=== PATIENT | female | born 1990 | race Caucasian/White ===

== ENCOUNTER 2018-07-13 17:24 | Inpatient (IN) | payer OTHER ==
[~2018-07-13] VITALS: Ht 172.7 cm; Wt 85.7 kg
--- NOTE | 2018-07-13 21:38 | NUR ---
SURVEILLANCE SUPERVISOR NOTES RECEIVED PATIENT IN [facility] FROM [facility]. PATIENT IS ALERT AND ORIENTED X4, VERBALLY RESPONSIVE, ABLE TO MAKE NEEDS KNOWN. BREATHING EVEN AND UNLABORED. NO SOB NOTED. TOLERATING ROOM AIR. NO COMPLAINTS OF PAIN OR DISCOMFORT. IV ON LEFT AC G#20 INTACT AND PATENT. SKIN DRY AND WARM TO TOUCH. AFEBRILE. EXPLAINED THE PROCESS OF ADMISSION, INCLUDING SKIN ASSESSMENT. ORIENTED TO THE USE OF UNIT AMENITIES. BELONGINGS ACCOUNTED FOR. SAFETY MEASURES IN PLACE. CALL LIGHT WITHIN REACH. WILL CONTINUE TO MONITOR.
[2018-07-13 21:45] VITALS: BP 102/66
--- NOTE | 2018-07-13 22:00 | NUR ---
RN MS NOTES INFORMED PATIENT REGARDING SKIN ASSESSMENT. ONLY ABLE TO ASSESS ARMS, CHEST, ABDOMEN AND BACK AND FOUND NO ISSUES. PATIENT HAS LIMITED MOVEMENTS DUE TO DIZZINESS. PATIENT REFUSED TO TAKE OFF PANTS REGARDLESS OF GOWN ON. PATIENT ASSURED THAT SHE HAS NO WOUNDS OR ANY SKIN ISSUES TO BE CONCERNED OF IN ANY PART OF HER BODY. WILL CONTINUE TO MONITOR.
--- NOTE | 2018-07-13 22:35 | NUR ---
RN NOTES PER [facility] FOR PATIENT TO BE MED/SURG.
--- NOTE | 2018-07-13 22:35 | NUR ---
MARKETING COMMUNICATION MANAGER NOTES PAGED DR. DUENAS AND MADE AWARE OF ADMISSION TO UNIT FROM [facility]. PER HENRIQUE, HE WILL PUT IN ADMISSION ORDERS.
[2018-07-13] MEDS ORDERED: HYDROCODONE/APAP 5/325MG 1 EACH TABLET PO PRN (23:00)
[2018-07-13] MEDS ORDERED: ACETAMINOPHEN 325 MG TABLET PO PRN (23:00)
[2018-07-13] MEDS ORDERED: ONDANSETRON HCL/PF 4 MG/2 ML VIAL IVP PRN (23:00)
[2018-07-13] MEDS ORDERED: MAGNESIUM HYDROXIDE 30 ML UDC PO PRN (23:00)
[2018-07-13] MEDS ORDERED: ZOLPIDEM TARTRATE 5 MG TABLET PO PRN (23:00)
[2018-07-13] MEDS ORDERED: Z GUARD REMEDY 2 OZ OINT TP PRN (23:00)
[2018-07-13] MEDS ORDERED: MAG HYDROX/AL HYDROX/SIMETH 30 ML UDC PO PRN (23:00)
[2018-07-14] MEDS: IV NS 0.9% 1,000 ML IV PRN ×2 (00:30→17:17)
[2018-07-14] MEDS: MECLIZINE HCL 25 MG TABLET PO SCH ×3 (04:37→20:01)
[2018-07-14 06:28] LABS: BASOPHILS # (AUTO) 0.1 /CMM (0.0-0.2); BASOPHILS % (AUTO) 0.5 % (0.0-2.0); EOSINOPHILS % (AUTO) 1.6 % (0.0-6.0); HEMATOCRIT 37 % (33-45); HEMOGLOBIN 12.7 g/dL (11.5-14.8); LYMPHOCYTES # (AUTO) 3.7 /CMM (0.8-4.8); LYMPHOCYTES % (AUTO) 36.9 % (20.0-44.0); MEAN CORPUSCULAR HGB CONC 35 g/dl (31.0-36.0); MEAN CORPUSCULAR VOLUME 94 fL (82-100); MONOCYTES # (AUTO) 0.9 /CMM (0.1-1.30); MONOCYTES % (AUTO) 8.5 % (2.0-12.0); NEUTROPHILS # (AUTO) 5.3 /CMM (1.8-8.9); NEUTROPHILS % (AUTO) 52.5 % (43.0-81.0); PLATELET COUNT (AUTO) 228 /CMM (150-450); RED BLOOD CELL COUNT(AUTO) 3.88 MIL/uL (4.0-5.2); WHITE BLOOD COUNT (AUTO) 10.1 K/uL (4.3-11.0)
[2018-07-14 06:33] LABS: ALBUMIN 3.3 g/dL (3.4-5.0); BILIRUBIN,TOTAL 0.6 mg/dL (0.2-1.0); CALCIUM, SERUM 8.8 mg/dL (8.5-10.1); CREATININE 0.9 mg/dL (0.6-1.3); MAGNESIUM 1.9 mg/dL (1.8-2.4); PHOSPHORUS 3.7 mg/dL (2.5-4.9); POTASSIUM 3.7 mmol/L (3.5-5.1); TOTAL PROTEIN, SERUM 6.5 g/dL (6.4-8.2)
--- NOTE | 2018-07-14 06:37 | NUR ---
RN MS CLOSING NOTES PATIENT RESTING IN BED. NO ACUTE CHANGES THROUGHOUT SHIFT. NO DISTRESS. BREATHING EVEN AND UNLABORED. NO SOB NOTED. TOLERATING ROOM AIR. NO COMPLAINTS OF PAIN OR DISCOMFORT. IV ON LEFT AC G#20 INTACT AND PATENT WITH NS RUNNING AT 75ML/HR. SKIN DRY AND WARM TO TOUCH. AFEBRILE. PATIENT ABLE TO AMBULATE WITH STAND BY ASSIST. KEPT COMFORTABLE. SAFETY MEASURES IN PLACE. CALL LIGHT WITHIN REACH. WILL ENDORSE TO ONCOMING NURSE FOR CATHY.
--- NOTE | 2018-07-14 07:05 | NUR ---
DIETITIAN TEACHER NOTES PATIENT IN BED ALERT ORIENTED X 4, NO ACUTE DISTRESS NOTED. BREATHING UNLABORED. NO SOB NOTED. IV ACCESS PATENT AND INTACT, NO REDNESS OR SWELLING NOTED. SAFETY MEASURES IN PLACE. CALL LIGHT WITHIN REACH. WILL CONTINUE TO MONITOR ACCORDINGLY.
[2018-07-14 07:13] LABS: THYROID STIMULATING HORMONE 2.574 uIU/mL (0.358-3.74)
[2018-07-14 08:00] VITALS: BP 112/66
[2018-07-14 11:19] LABS: APPEARANCE,URINE SL CLOUDY (CLEAR); BILIRUBIN,URINE NEGATIVE (NEGATIVE); BLOOD, URINE NEGATIVE Ery/uL (NEGATIVE); COLOR,URINE YELLOW (YELLOW); KETONES,URINE NEGATIVE (NEGATIVE); LEUKOCYTE ESTERASE ,URINE NEGATIVE (NEGATIVE); NITRITE, URINE NEGATIVE (NEGATIVE); PH,URINE 5.5 (5.0-8.0); PROTEIN,URINE NEGATIVE (NEGATIVE); UGLUCOSE NEGATIVE (NEGATIVE); UROBILINOGEN,URINE 0.2 EU/dL (0.2)
[2018-07-14] MEDS ORDERED: MECL-102 PO (13:17)
[2018-07-14 16:00] VITALS: BP 126/70
--- NOTE | 2018-07-14 18:50 | NUR ---
MS RN NOTES PATIENT IN BED ALERT ORIENTED X 4, NO ACUTE DISTRESS NOTED. BREATHING UNLABORED. NO SOB NOTED. IV ACCESS PATENT AND INTACT, NO REDNESS OR SWELLING NOTED.DUE MEDICATIONS GIVEN, NO ASE NOTED.NEEDS ATTENDED AND ANTICIPATED. KEPT CLEAN DRY AND COMFORTABLE. SAFETY MEASURES IN PLACE. CALL LIGHT WITHIN REACH. WILL ENDORSE TO NIGHT NURSE FOR CONTINUITY OF CARE.
--- NOTE | 2018-07-14 19:34 | NUR ---
MS RN NOTE RECEIVED PT IN STABLE CONDITION A&0 X4. WITH NO SIGNS OF SOB OR DISTRESS. PT CURRENTLY RESTING IN BED. SAFETY MEASURES IN PLACE: BED LOCKED AND LOW POSITION WITH UPPER BED RAILS UP X2, AND CALL LIGHT WITHIN REACH. WILL CONT TO MONITOR.
[2018-07-14 20:00] VITALS: BP 115/75
[2018-07-15] MEDS: MECLIZINE HCL 25 MG TABLET PO SCH ×2 (04:11→12:51)
--- NOTE | 2018-07-15 06:23 | NUR ---
MS RN NOTE PT IN STABLE CONDITION A&0 X4. WITH NO SIGNS OF SOB OR DISTRESS. PT CURRENTLY RESTING IN BED. SAFETY MEASURES IN PLACE: BED LOCKED AND LOW POSITION WITH UPPER BED RAILS UP X2, AND CALL LIGHT WITHIN REACH. WILL CONT TO MONITOR AND ENDORSE TO NEXT SHIFT.
--- NOTE | 2018-07-15 07:25 | NUR ---
MS/RN OPENING NOTE THE PATIENT IS RECEIVED SLEEPING IN BED. RESPONSIVE TO VERBAL AND TACTILE STIMULI. ALERT AND ORIENTED X4 AND ABLE TO MAKE NEEDS KNOWN VERBALLY. IN ROOM AIR AND DENIES SOB. RESPIRATION REGULAR AND UNLABORED. DENIES PAIN. LAC G 20 PATENT AND NORMAL SALINE INFUSING AT 75ML/HR AND NO S/S INFILTRATION NOTED. BED LOW AND LOCKED. SIDE RAILS UP X2. CALL LIGHT WITHIN REACH. WILL CONTINUE TO MONITOR.
[2018-07-15 08:00] VITALS: BP 123/75
--- NOTE | 2018-07-15 15:21 | NUR ---
MS/RN NOTE THE PATIENT HAS BEEN REFUSING IV FLUIDS DESPITE EXPLAINING RISKS AND BENEFITS MULTIPLE TIMES. PATIENT IS NOTED TI HAVE GOOD PO INTAKE AND DRINKING FLUIDS WELL.
--- NOTE | 2018-07-15 15:49 | NUR ---
MS/RN NOTE THE PATIENT HAD MRI BRAIN WO CONTRAST. RESULT IS NOT AVAILABLE BY THIS TIME AND THE PATIENT IS REQUESTING TO GET DISCHARGED WITHOUT WAITING FOR THE RESULT. PER PATIENT SHE WILL OBTAIN THE RESULT FROM MEDICAL RECORD TOMORROW. DR JOHNS IS MADE AWARE OF THE PATIENT`S REQUEST. DR JOHNS GAVE AN ORDER TO DISCHARGE THE PATIENT HOME TODAY WITH OUT WAITING FOR THE MRI RESULT. DR JOHNS AGREED FOR THE PATIENT TO OBTAIN THE RESULT AFTERWARD. DISCHARGE ORDER IS NOTED AND CARRIED OUT. THE PATIENT IS MADE AWARE. THE PATIENT.
--- NOTE | 2018-07-15 16:08 | NUR ---
MS/RN NOTE THE PATIENT IS GIVEN DISCHARGE EDUCATION AND THE PATIENT VERBALIZED UNDERSTANDING. THE PATIENT WITH NO EPISODE OF DIZZINESS AT THIS TIME. VITAL SIGNS WNL. RESPIRATION REGULAR AND UNLABORED. IN ROOM AIR AND SATURATION AT 98%. DENIES PAIN. PATIENT IS PICKED UP BY HER PARENTS. PATIENT LEAVING THE HOSPITAL IN STABLE CONDITION. THE PATIENT IS REMINDED TO OBTAIN HER MRI RECORDS AND FOLLOW UP WITH HER PRIMARY CARE DOCTOR. THE PATIENT VERBALIZED UNDERSTANDING.
== END 2018-07-15 16:25 | disposition home or self-care (01) | DRG 111 ==
LOC: TELE 21:31 → MED 23:13 → TELE 23:19 → MED 07-14 06:39
DX: H81.10 Benign paroxysmal vertigo, unspecified ear (principal); G43.109 Migraine with aura, not intractable, without status migrainosus
CPT/HCPCS: 36415; 70551-TC; 80053-TC; 80061-TC; 80305; 81000-TC; 83735-TC; 84100-TC; 84443-TC; 84484-TC; 84702-TC; 85025-TC; 87081-TC; 93307-TC; G0378; J7030; J8597; Q2036